=== PATIENT | female | born 1980 | race Caucasian/White ===

== ENCOUNTER → 2017-09-17 16:22 | Outpatient (CLI) | payer MEDICAID, SELFPAY ==
[2017-09-22 14:36] LABS: HPV Reflexed? NOT INDICATED
== END ==
PROVIDERS: Visit Provider Obstetrics & Gynecology
DX: Z12.4 Encounter for screening for malignant neoplasm of cervix (principal); Z12.72 Encounter for screening for malignant neoplasm of vagina
CPT/HCPCS: 88175; G0145

== ENCOUNTER → 2018-09-21 10:32 | Outpatient (CLI) | payer MEDICAID, SELFPAY ==
[2018-09-21 14:02] LABS: Hematocrit 44.5 % (37-47); Hemoglobin 14.8 g/dl (12.0-15.0); Mean Corp Hgb Conc 33.3 g/gl (32-36); Mean Corpuscular Hgb 28.2 pg (27.0-32.0); Mean Corpuscular Volume 84.9 fL (81-99); Mean Platelet Vol. 10.6 fl (6.2-12.0); Platelet Count 346 K/mm3 (150-450); RBC Distribution Width CV 15.2 % (11.6-14.6); RBC Distribution Width SD 46.9 fl (35.1-43.9); Red Blood Count 5.24 M/mm3 (4.2-5.4); White Blood Count 8.4 K/mm3 (4.4-11.0)
[2018-09-21 14:08] LABS: Scan Indicated on CBC? Y/N NO
[2018-09-21 14:13] LABS: Free T3 2.7 pg/mL (2.18-3.98); Thyroid Stim Hormone (TSH) 2.77 uIU/mL (0.358-3.74)
[2018-09-23 14:43] LABS: HPV HC, High Risk Negative (Negative)
[2018-09-24 13:49] LABS: Testosterone, Free 0.03 ng/dL (0.10-0.85); Testosterone, Total 3 ng/dL (8-48)
[2018-09-24 14:57] LABS: Testosterone, % Free 1.16 % (0.50-2.80)
== END ==
PROVIDERS: Visit Provider Obstetrics & Gynecology
DX: Z12.4 Encounter for screening for malignant neoplasm of cervix (principal); E28.1 Androgen excess
CPT/HCPCS: 36415; 84402; 84403; 84439; 84443; 84481; 85027; 87624; 88175; G0145

== ENCOUNTER → 2019-12-07 | Outpatient (CLI) | payer MEDICAID, SELFPAY ==
[2019-12-07 17:36] LABS: Chlamydia Trachomatis by PCR Negative (Negative); Neisserai gonorrhoeae by PCR Negative (Negative); Probe Check PASS; Sample Adequacy Control PASS; Specimen Processing Control PASS
== END | disposition home or self-care (01) ==
LOC: LABSPEC 13:43
PROVIDERS: Visit Provider Obstetrics & Gynecology
DX: Z11.3 Encounter for screening for infections with a predominantly sexual mode of transmission (principal)
CPT/HCPCS: 87491; 87591

== ENCOUNTER → 2020-01-04 13:22 | Outpatient (CLI) | payer MEDICAID, SELFPAY ==
[2020-01-04 15:48] LABS: Hematocrit 45.1 % (37-47); Hemoglobin 14.5 g/dL (12.0-15.0); Mean Corp Hgb Conc 32.2 g/dL (32-36); Mean Corpuscular Hgb 28.2 pg (27.0-32.0); Mean Corpuscular Volume 87.6 fL (81-99); Mean Platelet Vol. 10.4 fl (6.2-12.0); Platelet Count 323 K/mm3 (150-450); RBC Distribution Width CV 15.3 % (11.6-14.6); Red Blood Count 5.15 M/mm3 (4.2-5.4); White Blood Count 8.7 K/mm3 (4.4-11.0)
[2020-01-04 16:06] LABS: Vitamin D,25 Hydroxy 68.6 ng/mL
[2020-01-04 16:11] LABS: Thyroid Stim Hormone (TSH) 3.23 uIU/mL (0.358-3.74)
== END ==
PROVIDERS: Visit Provider Obstetrics & Gynecology
DX: R53.83 Other fatigue (principal); E55.9 Vitamin D deficiency, unspecified; R42 Dizziness and giddiness; R51 Headache
CPT/HCPCS: 36415; 82306; 84443; 85027

== ENCOUNTER → 2021-06-05 14:55 | Outpatient (CLI) | payer MEDICAID, SELFPAY ==
[2021-06-05 15:39] LABS: Hemoglobin A1c 5.7 % (3.8-5.6)
[2021-06-05 17:49] LABS: Prolactin 22.6 ng/mL; Thyroid Stim Hormone (TSH) 2.28 uIU/mL (0.358-3.74)
[2021-06-10 13:07] LABS: Testosterone, % Free 2.59 % (0.50-2.80); Testosterone, Free 0.73 ng/dL (0.10-0.85); Testosterone, Total 28 ng/dL (4-50)
== END ==
PROVIDERS: Visit Provider Obstetrics & Gynecology
DX: L68.0 Hirsutism (principal)
CPT/HCPCS: 36415; 82627; 83036; 84146; 84402; 84403; 84439; 84443; 82626

== ENCOUNTER → 2022-02-19 | Outpatient (CLI) | payer MEDICAID, SELFPAY ==
[2022-03-01 17:17] LABS: HPV APTIMA, High Risk Negative (Negative)
== END | disposition home or self-care (01) ==
LOC: LABSPEC 15:28
PROVIDERS: Visit Provider Obstetrics & Gynecology
DX: Z12.4 Encounter for screening for malignant neoplasm of cervix (principal)
CPT/HCPCS: 87624; 88175; G0145